=== PATIENT | male | born 1950 | race Caucasian/White ===

== ENCOUNTER 2023-07-13 07:49 | Emergency (ER) | payer OTHER ==
[~2023-07-13] VITALS: Ht 190.5 cm; Wt 99.8 kg
[2023-07-13] MEDS ORDERED: LIPITOR20 MG PO (07:55)
[2023-07-13] MEDS ORDERED: OSPHENA60 MG (07:55)
[2023-07-13] MEDS ORDERED: CHILDREN'S ASPI81 MG PO (07:55)
[2023-07-13] MEDS ORDERED: METFORMIN HCL500 M3 (07:55)
[2023-07-13] MEDS ORDERED: TOPROL XL50 M1 PO (07:58)
[2023-07-13 09:23] LABS: HEMATOCRIT 43.4 % (39.0-48.0); HEMOGLOBIN 14.8 g/dL (13-16.00); MEAN CELL VOLUME 93.2 fL (80.0-100.00); MEAN CORPUSCULAR HEMOGLOBIN 31.7 pg (27.00-32.0); PLATELET COUNT 237 K/uL (150-450); RED BLOOD COUNT 4.66 M/uL (4.00-6.00); RED CELL DISTRIBUTION WIDTH 13.4 % (11.5-14.5)
[2023-07-13 09:30] LABS: CALCIUM 9.6 mg/dL (8.5-10.1); CREATININE SERUM 0.73 mg/dL (0.70-1.30); GFR 105.32; POTASSIUM 4.03 mEq/L (3.5-5.1)
[2023-07-13 09:38] LABS: INR 1.05; PARTIAL THROMBOPLASTIN TIME 26.2 SECONDS (22.0-34.0)
[2023-07-13] MEDS ORDERED: ENALAPRILAT DIHYDRATE 1.25 MG/ML VIAL IV ONE (10:45)
== END 2023-07-13 12:25 | disposition home or self-care (01) ==
LOC: ER 07:49
PROVIDERS: General Practice
DX: R04.0 Epistaxis (principal); I10 Essential (primary) hypertension; E11.9 Type 2 diabetes mellitus without complications; Z79.84 Long term (current) use of oral hypoglycemic drugs
CPT/HCPCS: 36415; 96365; 99282; J3490